=== PATIENT | male | born 1990 | race African-American/Black ===

== ENCOUNTER 2018-12-12 00:41 | Emergency (ER) | payer OTHER ==
--- NOTE | 2018-12-12 00:50 | ED Physician Documentation ---
PD HPI HEENT - Stated complaint Stated Complaint: SORE THROAT - History obtained from History obtained from: Patient - History of Present Illness Timing - onset: How many weeks ago (1) Timing - duration: Weeks (1) Timing - details: Gradual onset, Still present (worse the past day.) Location: Throat (tonsils, mostly left) Worsens: Swalllowing Associated symptoms: Fever, Swollen nodes, Other (coworker recently Dx with strep throat.). No: Congestion, Rhinorrhea Similar symptoms before: Has not had sx before Recently seen: Not recently seen Review of Systems Constitutional: reports: Fever. denies: Myalgias Ears: reports: Ear pain (some on left). denies: Loss of hearing, Drainage/discharge Nose: denies: Rhinorrhea / runny nose, Congestion Throat: reports: Sore throat, Swollen tonsils Cardiac: denies: Chest pain / pressure Respiratory: denies: Dyspnea, Cough GI: denies: Nausea, Vomiting, Diarrhea Skin: denies: Rash PD PAST MEDICAL HISTORY - Past Medical History Cardiovascular: None Respiratory: None Neuro: None Endocrine/Autoimmune: None - Present Medications Home Medications: Ambulatory Orders Medication Instructions Recorded Confirmed Cephalexin [Keflex] 500 mg PO Q6H #28 capsule 12/12/18 Dexamethasone [Decadron] 4 mg PO DAILY #5 tablet 12/12/18 - Allergies Allergies/Adverse Reactions: Allergies Allergy/AdvReac Type Severity Reaction Status Date / Time No Known Drug Allergies Allergy Verified 12/12/18 00:53 PD ED PE NORMAL - Vitals Vital signs reviewed: Yes - General General: Alert and oriented X 3, Well developed/nourished - HEENT HEENT: No: Pharynx benign (There is redness and swelling of both tonsils with exudate. There is more findings on the left. There is a mild amount of peritonsillar redness and edema but no deviation of the tonsil. The uvula appears normal.) - Neck Neck: Supple, no meningeal sign, Other (anterior adenopathy noted. ) - Cardiac Cardiac: RRR, No murmur - Respiratory Respiratory: Clear bilaterally - Derm Derm: Normal color, Warm and dry, No rash Results - Vitals Vitals: Vital Signs - 24 hr 12/12/18 12/12/18 00:43 01:18 Temperature 37.1 C Heart Rate 77 Respiratory 17 Rate Blood Pressure 132/84 H O2 Saturation 100 17 L Oxygen O2 Source Room air - Labs Labs: Laboratory Tests 12/12/18 00:45 Group A Strep Rapid Negative PD MEDICAL DECISION MAKING - ED course Complexity details: considered differential (He has considerable amount of clinical findings and does not have general URI symptoms. He has had some fevers but not high fevers. He would score 4 out of 4 on the Centor criteria. He has had exposure to strep throat and a coworker. I would treat him empirically at this point pending culture as I feel the rapid strep test is a false negative.), d/w patient Departure - Departure Disposition: Home, Self Care Clinical Impression: Exudative pharyngitis Condition: Stable Record reviewed to determine appropriate education?: Yes Instructions: ED Strep Pharyngitis Poss Follow-Up: [facility]oudh[facility] [Provider Group] Prescriptions: Cephalexin [Keflex] 500 mg PO Q6H #28 capsule Dexamethasone [Decadron] 4 mg PO DAILY #5 tablet Comments: Stay well-hydrated. Use some naproxen or ibuprofen twice daily for pain and inflammation. Add Decadron steroid anti-inflammatory daily for several more days. Cephalexin antibiotics as directed for a week. This looks like strep infection. Off work for a day. Okay to resume work after a full day on antibiotics. Add Tylenol or pain medicine if needed for pain in the short-term. This should improve over the next several days. Forms: Activity restrictions Discharge Date/Time: 12/12/18 01:15
[2018-12-12 00:51] VITALS: BP 132/84
[2018-12-12] MEDS ORDERED: DEXAMETHASONE 10 MG/ML VIAL PO STA (00:59)
[2018-12-12] MEDS ORDERED: cephALEXin 250 MG CAPSULE PO STA (00:59)
[2018-12-12] MEDS ORDERED: NAPROXEN 250 MG TABLET PO STA (00:59)
[2018-12-12] MEDS ORDERED: HYDROcod/ACET 5/325 Prepack 4 PO STA (00:59)
[2018-12-12] MEDS ORDERED: CHERRY SYRUP 10 ML UDC PO ONE (01:08)
== END 2018-12-12 01:15 | disposition home or self-care (01) ==
LOC: ED 00:41
DX: J02.9 Acute pharyngitis, unspecified (principal)
CPT/HCPCS: 87070; 87430; 99283; A9270